=== PATIENT | female | born 1970 | race Caucasian/White ===

== ENCOUNTER 2021-05-01 09:40 | Emergency (ER) | payer SELFPAY ==
[2021-05-01] MEDS ORDERED: Benzonatate 100 MG CAP ONE (10:11)
[2021-05-01] MEDS ORDERED: Ibuprofen 800 MG TAB ONE (10:11)
== END 2021-05-01 10:28 | disposition home or self-care (01) ==
LOC: MADERS 09:40
DX: U07.1 COVID-19 (principal); F17.210 Nicotine dependence, cigarettes, uncomplicated
CPT/HCPCS: 99283

== ENCOUNTER 2021-05-12 10:12 | Emergency (ER) | payer SELFPAY ==
[2021-05-13 03:30] LABS: SARS-CoV-2 PCR by NAA DETECTED (NotDetected)
== END 2021-05-12 11:00 | disposition home or self-care (01) ==
LOC: MADERS 10:12
DX: U07.1 COVID-19 (principal); F17.210 Nicotine dependence, cigarettes, uncomplicated; Z86.19 Personal history of other infectious and parasitic diseases
CPT/HCPCS: 99283; U0003; U0005